=== PATIENT | male | born 1970 | race African-American/Black ===

== ENCOUNTER 2017-03-02 23:04 | Emergency (ER) | payer OTHER ==
[~2017-03-02] VITALS: Ht 165.1 cm; Wt 75.0 kg
[2017-03-02 23:45] VITALS: BP 134/81; PULSE 86; RESP 16; TEMP 98.2; O2SAT 97
--- NOTE | 2017-03-02 23:48 | PD ---
HPI Chief Complaint: Psychiatric Symptoms Time Seen by Provider: 23:38 Travel History International Travel<30 days: No Contact w/Intl Traveler<30days: No Traveled to known affect area: No History of Present Illness HPI 46-year-old male presents to the emergency department under Floyd act for psychiatric evaluation. Patient states that he is newly homeless and feeling hopeless. He is having suicidal thoughts with no active plan. Reports cocaine and marijuana use. Denies any other acute medical needs. No other symptoms to report. PFSH Past Medical History Asthma: Yes Hypertension: Yes Immunizations Current: Yes Tetanus Vaccination: Never Vaccinated Influenza Vaccination: No Social History Alcohol Use: No Tobacco Use: Yes Substance Use: No Allergies-Medications (Allergen,Severity, Reaction): Coded Allergies: No Known Allergies (Verified Allergy, Unknown, 03/02/17) Reported Meds & Prescriptions Reported Meds & Active Scripts Active No Active Prescriptions or Reported Medications Review of Systems Except as stated in HPI: all other systems reviewed are Neg Physical Exam Narrative GENERAL: Well-nourished male patient, in no acute distress SKIN: Focused skin assessment warm/dry. HEAD: Atraumatic. Normocephalic. EYES: Pupils equal and round. No scleral icterus. No injection or drainage. ENT: No nasal bleeding or discharge. Mucous membranes pink and moist. NECK: Trachea midline. No JVD. CARDIOVASCULAR: Regular rate and rhythm. No murmur appreciated. RESPIRATORY: No accessory muscle use. Clear to auscultation. Breath sounds equal bilaterally. GASTROINTESTINAL: Abdomen soft, non-tender, nondistended. Hepatic and splenic margins not palpable. MUSCULOSKELETAL: No obvious deformities. No clubbing. No cyanosis. No edema. NEUROLOGICAL: Awake and alert. No obvious cranial nerve deficits. Motor grossly within normal limits. Normal speech. Data Data Last Documented VS Vital Signs Date Time Temp Pulse Resp B/P (MAP) Pulse Ox O2 Delivery O2 Flow Rate FiO2 03/02/17 23:45 98.2 86 16 134/81 (98) 97 Orders Orders Complete Blood Count With Diff (03/02/17 23:38) Basic Metabolic Panel (Bmp) (03/02/17 23:38) Psych Screen (03/02/17 23:38) Drug Screen, Random Urine (03/02/17 23:38) Alcohol (Ethanol) (03/02/17 23:38) Diet Regular Basic (03/03/17 Breakfast) Labs Laboratory Tests Test 03/02/17 00:00 White Blood Count 2.8 TH/MM3 Red Blood Count 5.12 MIL/MM3 Hemoglobin 13.1 GM/DL Hematocrit 38.6 % Mean Corpuscular Volume 75.5 FL Mean Corpuscular Hemoglobin 25.5 PG Mean Corpuscular Hemoglobin Concent 33.9 % Red Cell Distribution Width 14.1 % Platelet Count 229 TH/MM3 Mean Platelet Volume 7.0 FL Neutrophils (%) (Auto) 73.7 % Lymphocytes (%) (Auto) 9.5 % Monocytes (%) (Auto) 14.3 % Eosinophils (%) (Auto) 1.9 % Basophils (%) (Auto) 0.6 % Neutrophils # (Auto) 2.1 TH/MM3 Lymphocytes # (Auto) 0.3 TH/MM3 Monocytes # (Auto) 0.4 TH/MM3 Eosinophils # (Auto) 0.1 TH/MM3 Basophils # (Auto) 0.0 TH/MM3 CBC Comment DIFF FINAL Differential Comment Blood Urea Nitrogen 17 MG/DL Creatinine 1.90 MG/DL Random Glucose 86 MG/DL Calcium Level 9.1 MG/DL Sodium Level 138 MEQ/L Potassium Level 3.9 MEQ/L Chloride Level 101 MEQ/L Carbon Dioxide Level 29.2 MEQ/L Anion Gap 8 MEQ/L Estimat Glomerular Filtration Rate 46 ML/MIN Urine Opiates Screen NEG Urine Barbiturates Screen NEG Urine Amphetamines Screen NEG Urine Benzodiazepines Screen NEG Urine Cocaine Screen POS Urine Cannabinoids Screen NEG Ethyl Alcohol Level LESS THAN 3 MG/DL MDM Medical Decision Making Medical Screen Exam Complete: Yes Emergency Medical Condition: Yes Medical Record Reviewed: Yes Differential Diagnosis Mood disorder versus personality disorder versus adjustment reaction disorder versus malingering Narrative Course 46-year-old male presents to emergency department under Floyd act for psychiatric evaluation. Patient appears without distress. His vital signs are stable. Workup is initiated for medical clearance. Laboratory Tests Test 03/02/17 00:00 White Blood Count 2.8 TH/MM3 Red Blood Count 5.12 MIL/MM3 Hemoglobin 13.1 GM/DL Hematocrit 38.6 % Mean Corpuscular Volume 75.5 FL Mean Corpuscular Hemoglobin 25.5 PG Mean Corpuscular Hemoglobin Concent 33.9 % Red Cell Distribution Width 14.1 % Platelet Count 229 TH/MM3 Mean Platelet Volume 7.0 FL Neutrophils (%) (Auto) 73.7 % Lymphocytes (%) (Auto) 9.5 % Monocytes (%) (Auto) 14.3 % Eosinophils (%) (Auto) 1.9 % Basophils (%) (Auto) 0.6 % Neutrophils # (Auto) 2.1 TH/MM3 Lymphocytes # (Auto) 0.3 TH/MM3 Monocytes # (Auto) 0.4 TH/MM3 Eosinophils # (Auto) 0.1 TH/MM3 Basophils # (Auto) 0.0 TH/MM3 CBC Comment DIFF FINAL Differential Comment Blood Urea Nitrogen 17 MG/DL Creatinine 1.90 MG/DL Random Glucose 86 MG/DL Calcium Level 9.1 MG/DL Sodium Level 138 MEQ/L Potassium Level 3.9 MEQ/L Chloride Level 101 MEQ/L Carbon Dioxide Level 29.2 MEQ/L Anion Gap 8 MEQ/L Estimat Glomerular Filtration Rate 46 ML/MIN Urine Opiates Screen NEG Urine Barbiturates Screen NEG Urine Amphetamines Screen NEG Urine Benzodiazepines Screen NEG Urine Cocaine Screen POS Urine Cannabinoids Screen NEG Ethyl Alcohol Level LESS THAN 3 MG/DL Patient is medically cleared to undergo psychiatric screening for further evaluation and disposition. Mental health screening discussed with the patient. Psychiatric screen ordered. Diagnosis Primary Impression: Adjustment disorder Qualified Codes: F43.25 - Adjustment disorder with mixed disturbance of emotions and conduct Additional Impressions: Substance abuse Homelessness Scripts No Active Prescriptions or Reported Meds Condition: Iqra Velasquez Mar 02, 2017 23:48
[2017-03-03 00:04] LABS: AUTOMATED NEUTROPHIL # 2.1 TH/MM3 (1.8-7.7); BASOPHIL % 0.6 % (0.0-2.0); EOSINOPHIL # 0.1 TH/MM3 (0-0.4); EOSINOPHIL % 1.9 % (0.0-4.0); HEMATOCRIT 38.6 % (39.0-51.0); HEMO FLAGS DIFF FINAL; LYMPH % 9.5 % (9.0-44.0); LYMPHOCYTE # 0.3 TH/MM3 (1.0-4.8); MEAN CELL VOLUME 75.5 FL (80.0-100.0); MEAN CORPUSCULAR HEMOGLOBIN 25.5 PG (27.0-34.0); MEAN CORPUSCULAR HGB CONC 33.9 % (32.0-36.0); MONO % 14.3 % (0.0-8.0); NEUT % 73.7 % (16.0-70.0); PLATELET COUNT 229 TH/MM3 (150-450); RED BLOOD COUNT 5.12 MIL/MM3 (4.50-5.90); RED CELL DISTRIBUTION WIDTH 14.1 % (11.6-17.2); WHITE BLOOD COUNT 2.8 TH/MM3 (4.0-11.0)
[2017-03-03 00:17] LABS: ANION GAP 8 MEQ/L (5-15); BICARBONATE 29.2 MEQ/L (21.0-32.0); BLOOD UREA NITROGEN 17 MG/DL (7-18); CHLORIDE 101 MEQ/L (98-107); GLOMERULAR FILTRATION RATE 46 ML/MIN (>89); POTASSIUM 3.9 MEQ/L (3.5-5.1); SODIUM (NA) 138 MEQ/L (136-145)
[2017-03-03 00:18] LABS: ALCOHOL LESS THAN 3 MG/DL (0-5)
[2017-03-03 06:28] VITALS: BP 165/85; PULSE 92; RESP 18
--- NOTE | 2017-03-03 08:56 | PD ---
Physical Exam Time Seen by Provider: 08:[address] Baca has evaluated the patient, lifted the Floyd act and the patient will be discharged home. Data Data Last Documented VS Vital Signs Date Time Temp Pulse Resp B/P (MAP) Pulse Ox O2 Delivery O2 Flow Rate FiO2 03/03/17 06:28 92 18 165/85 (111) 03/02/17 23:45 98.2 97 Orders Orders Complete Blood Count With Diff (03/02/17 23:38) Basic Metabolic Panel (Bmp) (03/02/17 23:38) Psych Screen (03/02/17 23:38) Drug Screen, Random Urine (03/02/17 23:38) Alcohol (Ethanol) (03/02/17 23:38) Diet Regular Basic (03/03/17 Breakfast) Labs Laboratory Tests Test 03/02/17 00:00 White Blood Count 2.8 TH/MM3 Red Blood Count 5.12 MIL/MM3 Hemoglobin 13.1 GM/DL Hematocrit 38.6 % Mean Corpuscular Volume 75.5 FL Mean Corpuscular Hemoglobin 25.5 PG Mean Corpuscular Hemoglobin Concent 33.9 % Red Cell Distribution Width 14.1 % Platelet Count 229 TH/MM3 Mean Platelet Volume 7.0 FL Neutrophils (%) (Auto) 73.7 % Lymphocytes (%) (Auto) 9.5 % Monocytes (%) (Auto) 14.3 % Eosinophils (%) (Auto) 1.9 % Basophils (%) (Auto) 0.6 % Neutrophils # (Auto) 2.1 TH/MM3 Lymphocytes # (Auto) 0.3 TH/MM3 Monocytes # (Auto) 0.4 TH/MM3 Eosinophils # (Auto) 0.1 TH/MM3 Basophils # (Auto) 0.0 TH/MM3 CBC Comment DIFF FINAL Differential Comment Blood Urea Nitrogen 17 MG/DL Creatinine 1.90 MG/DL Random Glucose 86 MG/DL Calcium Level 9.1 MG/DL Sodium Level 138 MEQ/L Potassium Level 3.9 MEQ/L Chloride Level 101 MEQ/L Carbon Dioxide Level 29.2 MEQ/L Anion Gap 8 MEQ/L Estimat Glomerular Filtration Rate 46 ML/MIN Urine Opiates Screen NEG Urine Barbiturates Screen NEG Urine Amphetamines Screen NEG Urine Benzodiazepines Screen NEG Urine Cocaine Screen POS Urine Cannabinoids Screen NEG Ethyl Alcohol Level LESS THAN 3 MG/DL MDM Supervised Visit with [facility]: No Narrative Course Dr. Baca has evaluated the patient, lifted the Floyd act and the patient will be discharged home. Patient contracts safety. Denies suicidal or homicidal ideations. Patient will be provided community resource packet to [facility] for follow-up. Has friends and family for support. Patient is medically cleared for discharge. Diagnosis Primary Impression: Adjustment disorder Qualified Codes: F43.25 - Adjustment disorder with mixed disturbance of emotions and conduct Additional Impressions: Substance abuse Homelessness Referrals: [facility] (Out patient) Primary Care Physician Psychiatrist [facility] Patient Instructions: Abuse of Alcohol (ED), General Instructions, Polysubstance Abuse (ED) Additional Instruction: Contract safety to your self and others Follow-up with psychiatry Follow-up with primary care provider Follow-up with [facility] Return to the emergency department immediately with worsening of symptoms Med/Other Pt SpecificInfo: No Meds Exist/No RX given Scripts No Active Prescriptions or Reported Meds Disposition: 01 DISCHARGE HOME Condition: Stable Jazmyne Frausto Mar 03, 2017 08:56
[2017-03-03 09:28] VITALS: BP 165/85; TEMP 98
--- NOTE | 2017-03-03 16:46 | PD.PSY.CON ---
Provisional Diagnosis Admission Date [place] I. Cocaine-induced mood disorder, cocaine use disorder, history of anxiety [place] II. Deferred [place] III. HTN, asthma History of Present Illness Service Psychiatry Consult Requested By Reason for Consult Psychiatric evaluation Primary Care Physician No Primary Care Physician HPI The patient is a 46-year-old man, homeless, single, unemployed , recently moved to [place], report a psychiatric history of anxiety, cocaine use disorder, no previous psychiatric hospitalizations, no previous suicidal attempts, medical history hypertension and asthma,who presents to the emergency department under Floyd act for psychiatric evaluation. Patient states that he is newly homeless and feeling hopeless. He is having suicidal thoughts with no active plan. Reports cocaine and marijuana use. Denies any other acute medical needs. No other symptoms to report. However, today on psychiatric evaluation patient reports improvement mood, he says that yesterday he was overwhelmed, tired to be homeless a walk in the street. He says that he used alcohol marijuana and cocaine after weeks without using it and he felt depressed and paranoid. At this moment the patient denies depression, he denies suicidal and homicidal ideation, denies visual and auditory hallucinations. Patient is future oriented, asking for referral for charge. Oriented 3, he reports occasional use of marijuana and cocaine and also alcohol. Review of Systems Constitutional: DENIES: Diaphoretic episodes, Fatigue, Fever, Weight gain, Weight loss, Chills, Dizziness, Change in appetite, Night Sweats Endocrine: DENIES: Heat/cold intolerance, Polydipsia, Polyuria, Polyphagia Eyes: DENIES: Blurred vision, Diplopia, Eye inflammation, Eye pain, Vision loss , Photosensitivity, Double Vision Ears, nose, mouth, throat: DENIES: Tinnitus, Hearing loss, Vertigo, Nasal discharge, Oral lesions, Throat pain, Hoarseness, Ear Pain, Running Nose, Epistaxis, Sinus Pain, Toothache, Odynophagia Respiratory: DENIES: Apneas, Cough, Snoring, Wheezing, Hemoptysis, Sputum production, Shortness of breath Cardiovascular: DENIES: Chest pain, Palpitations, Syncope, Dyspnea on Exertion , PND, Lower Extremity Edema, Orthopnea, Claudication Gastrointestinal: DENIES: Abdominal pain, Black stools, Bloody stools, Constipation, Diarrhea, Nausea, Vomiting, Difficulty Swallowing, Anorexia Genitourinary: DENIES: Sexual dysfunction, Urinary frequency, Urinary incontinence, Urgency, Hematuria, Dysuria, Nocturia, Penile Discharge, Testicular Pain, Testicular Swelling Musculoskeletal: DENIES: Joint pain, Muscle aches, Stiffness, Joint Swelling, Back pain, Neck pain Hematologic/lymphatic: DENIES: Bruising, Lymphadenopathy Immunologic/allergic: DENIES: Eczema, Urticaria Neurologic: DENIES: Abnormal gait, Headache, Localized weakness, Paresthesias, Seizures, Speech Problems, Tremor, Poor Balance Psychiatric: DENIES: Anxiety, Confusion, Mood changes, Depression, Hallucinations, Agitation, Suicidal Ideation, Homicidal Ideation, Delusions Past Family Social History Coded Allergies: No Known Allergies (Verified Allergy, Unknown, 03/02/17) No Active Prescriptions or Reported Meds Family History Denies family psychiatric history Social History Patient is from [facility], homeless, single unemployed, his highest level of education is some college credits Physical Exam Vital Signs Vital Signs Date Time Temp Pulse Resp B/P (MAP) Pulse Ox O2 Delivery O2 Flow Rate FiO2 03/03/17 09:28 98.0 80 18 165/85 (111) 98 I/O 03/03/17 03/03/17 03/04/17 08:00 16:00 00:00 Intake Total 420 ml Balance 420 ml Mental Status Examination Speech: Unremarkable Orientation: x3 Memory: Unremarkable Thought Process: Logical Thought Content: Unremarkable Hallucination Type: None Suicidal Ideation: No Previous Suicide Attempts: No Homicidal Ideation: No Previous Homicide Attempts: No Judgment: WNL Affect: Good Mood: Appropriate Motor Activity: Normal gait Assessment & Plan Problem List: (1) Substance induced mood disorder ICD Codes: F19.94 - Other psychoactive substance use, unspecified with psychoactive substance-induced mood disorder Assessment & Plan: Patient does not meet criteria for psychiatric admission at this moment. Floyd act will be lifted. Assessment & Plan Estimated LOS: Son Tinoco MD Mar 03, 2017 16:46
== END 2017-03-03 09:38 | disposition home or self-care (01) ==
LOC: NEDAMB 23:04 → NEPJ 03-03 09:38
DX: F19.10 Other psychoactive substance abuse, uncomplicated (principal); J45.909 Unspecified asthma, uncomplicated; F12.90 Cannabis use, unspecified, uncomplicated; F14.90 Cocaine use, unspecified, uncomplicated; I10 Essential (primary) hypertension; Z72.0 Tobacco use; Z59.0 Homelessness
CPT/HCPCS: 80048; 80307; 85025; 99284

== ENCOUNTER 2017-03-16 04:30 | Emergency (ER) | payer SELFPAY ==
[~2017-03-16] VITALS: Ht 172.7 cm; Wt 70.0 kg
[2017-03-16 04:33] VITALS: BP 159/97; PULSE 102; RESP 16; TEMP 98.5; O2SAT 95
[2017-03-16] MEDS ORDERED: DICL75TA PO (05:41)
[2017-03-16] MEDS ORDERED: NAPROXEN 500 MG TAB PO ONE (05:45)
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
== END 2017-03-16 06:04 | disposition home or self-care (01) ==
LOC: NEPD 04:30
DX: R07.81 Pleurodynia (principal); Y04.0XXA Assault by unarmed brawl or fight, initial encounter
CPT/HCPCS: 99283